=== PATIENT | male | born 1985 | race African-American/Black ===

== ENCOUNTER 2017-08-03 04:23 | Emergency (ER) | payer MEDICAID ==
[~2017-08-03] VITALS: Ht 188 cm; Wt 128.0 kg
[2017-08-03] MEDS ORDERED: HYDROCODONE/ACETAMINOPHEN 5/325MG TABLET PO ONE (06:30)
[2017-08-03] MEDS ORDERED: ONDANSETRON 4MG ODT PO ONE (06:30)
[2017-08-03 07:09] LABS: CHLORIDE 105 mEq/L (98-107)
[2017-08-03] MEDS ORDERED: ENALAPRIL 5MG TABLET PO SCH (07:30)
[2017-08-03 08:25] VITALS: BP 174/114
[2017-08-14] MEDS ORDERED: BENZ200C52 PO (08:46)
[2017-08-14] MEDS ORDERED: ENAL5TAB PO (08:46)
== END 2017-08-03 08:36 | disposition home or self-care (01) ==
LOC: ER 04:23
DX: S50.12XA Contusion of left forearm, initial encounter (principal); R68.84 Jaw pain; K03.81 Cracked tooth; G62.9 Polyneuropathy, unspecified; Y04.2XXA Assault by strike against or bumped into by another person, initial encounter; Y93.89 Activity, other specified; Y92.89 Other specified places as the place of occurrence of the external cause; Y99.0 Civilian activity done for income or pay; I10 Essential (primary) hypertension; F12.90 Cannabis use, unspecified, uncomplicated; F17.210 Nicotine dependence, cigarettes, uncomplicated; E66.9 Obesity, unspecified; Z68.36 Body mass index [BMI] 36.0-36.9, adult
CPT/HCPCS: 36415; 73090; 80048; 99285; Q0162

== ENCOUNTER 2017-09-01 03:02 | Emergency (ER) | payer MEDICAID ==
[~2017-09-01] VITALS: Ht 182.9 cm; Wt 131.0 kg
[2017-09-01 04:49] VITALS: BP 121/72
== END 2017-09-01 04:59 | disposition home or self-care (01) ==
LOC: ER 03:13
DX: S41.112D Laceration without foreign body of left upper arm, subsequent encounter (principal); X58.XXXD Exposure to other specified factors, subsequent encounter; I10 Essential (primary) hypertension; Z98.890 Other specified postprocedural states; Z88.5 Allergy status to narcotic agent
CPT/HCPCS: 99283; Z7610

== ENCOUNTER 2017-09-02 22:01 | Emergency (ER) | payer MEDICAID ==
[~2017-09-02] VITALS: Ht 188 cm; Wt 133.0 kg
[2017-09-02] MEDS ORDERED: ACETAMINOPHEN 325MG TABLET PO STA (22:55)
[2017-09-02] MEDS ORDERED: LIDOCAINE 5% PATCH TOP STA (22:55)
[2017-09-02] MEDS ORDERED: CEFTRIAXONE 1 G PREMIX 50 ML IV ONE (23:00)
[2017-09-02] MEDS ORDERED: AZITHROMYCIN 500 MG in DEXT 5% WATER 250 ML IV ONE (23:00)
[2017-09-02] MEDS ORDERED: SODIUM CHLORIDE 0.9% 1000ML BAG (SEPSIS BOLUS) IV ONE (23:00)
[2017-09-02] MEDS ORDERED: ASPIRIN 81MG TABLET PO ONE (23:00)
[2017-09-03] MEDS ORDERED: LIDOCAINE 5% PATCH TOP STA (00:01)
[2017-09-03 01:17] VITALS: BP 135/74
== END 2017-09-03 01:07 | disposition left against medical advice (07) ==
LOC: ER 22:01
DX: Z48.00 Encounter for change or removal of nonsurgical wound dressing (principal); R05 Cough; G89.18 Other acute postprocedural pain; I10 Essential (primary) hypertension; Z88.6 Allergy status to analgesic agent; Z87.891 Personal history of nicotine dependence
CPT/HCPCS: 71045; 93005; 99284; J0456; J7030; Z7610; J7060

== ENCOUNTER 2017-09-09 23:55 | Emergency (ER) | payer MEDICAID ==
[~2017-09-09] VITALS: Ht 188 cm; Wt 136.0 kg
[2017-09-10] MEDS ORDERED: IBUPROFEN 600MG TABLET PO ONE (04:30)
[2017-09-10 04:34] VITALS: BP 136/86
== END 2017-09-10 09:28 | disposition home or self-care (01) ==
LOC: ER 23:55
DX: S20.212A Contusion of left front wall of thorax, initial encounter (principal); V43.52XA Car driver injured in collision with other type car in traffic accident, initial encounter; Y93.89 Activity, other specified; Y92.410 Unspecified street and highway as the place of occurrence of the external cause; I10 Essential (primary) hypertension; Z88.5 Allergy status to narcotic agent; Z88.6 Allergy status to analgesic agent; Z87.891 Personal history of nicotine dependence
CPT/HCPCS: 71111; 99284; Z7610

== ENCOUNTER 2017-10-27 18:11 | Emergency (ER) | payer MEDICAID | END 2017-10-27 20:11 | disposition left against medical advice (07) | LOC: ER 18:11 | DX: Z53.21 Procedure and treatment not carried out due to patient leaving prior to being seen by health care provider (principal) ==

== ENCOUNTER 2017-11-05 04:37 | Emergency (ER) | payer MEDICAID ==
[~2017-11-05] VITALS: Ht 190.5 cm; Wt 152.4 kg
[2017-11-05] MEDS ORDERED: MORPHINE SULFATE 4 MG/ML CPJ (NOT FOR IM USE) IV STA (06:22)
[2017-11-05] MEDS ORDERED: DIPHENHYDRAMINE 50MG/ML VIAL IV ONE (06:30)
[2017-11-05 06:45] LABS: BASOPHILS % 0.5 % (0.0-2.0); EOSINOPHILS % 1.2 % (0.0-5.0); HEMATOCRIT. 38.5 % (42.0-52.0); HEMOGLOBIN. 12.7 g/dL (14.0-18.0); LYMPHOCYTES % 28.7 % (20.0-50.0); MEAN CORPUSCULAR HEMOGLOBIN 28.2 pg (28.0-32.0); MEAN CORPUSCULAR VOLUME 85.6 fL (80.0-94.0); MEAN PLATELET VOLUME 9.9 fl (7.4-10.4); MONOCYTES % 9.7 % (2.0-8.0); NEUTROPHILS % 59.9 % (40.0-76.0); PLATELET 202 x1000/uL (130-400); RED CELL DISTRIBUTION WIDTH 16.2 % (11.6-14.6)
[2017-11-05 06:52] LABS: CHLORIDE 102 mEq/L (98-107); PROTHROMBIN TIME 10.4 sec (9.1-11.1)
[2017-11-05 07:30] LABS: CLARITY URINE CLOUDY (CLEAR); COLOR URINE YELLOW (YELLOW); KETONES URINE NEGATIVE (NEGATIVE); LEUKOCYTE ESTERASE URINE NEGATIVE (NEGATIVE); NITRITE URINE NEGATIVE (NEGATIVE); OCCULT BLOOD URINE NEGATIVE (NEGATIVE); PROTEIN URINE NEGATIVE (NEGATIVE)
[2017-11-05] MEDS ORDERED: KETOROLAC 30MG/ML VIAL IV ONE (07:30)
[2017-11-05 08:04] VITALS: BP 154/101
== END 2017-11-05 08:04 | disposition home or self-care (01) ==
LOC: ER 05:36
DX: R10.12 Left upper quadrant pain (principal); I10 Essential (primary) hypertension
CPT/HCPCS: 36415; 71045; 74176; 80053; 81003; 83690; 85025; 85610; 96374; 96375; 99285; J1200; J1885; J2270